=== PATIENT | female | born 1985 ===

== ENCOUNTER 2020-03-13 02:43 | Inpatient (IN) | payer OTHER ==
[~2020-03-13] VITALS: Ht 154.9 cm; Wt 56.2 kg
[2020-03-13] MEDS ORDERED: PRENATABS RX T1 EACH PO (03:04)
[2020-03-15] MEDS ORDERED: NAPR500T14 PO (09:47)
== END 2020-03-15 11:56 | disposition home or self-care (01) | DRG 807 ==
LOC: LDR 02:43 → OB/GYN 02:43
PROVIDERS: ADMIT Obstetrics & Gynecology; ATTEND Obstetrics & Gynecology
PROC: 10E0XZZ Delivery of Products of Conception, External Approach (ICD-10-PCS; principal; 2020-03-13)
PROC: 0KQM0ZZ Repair Perineum Muscle, Open Approach (ICD-10-PCS; 2020-03-13)
PROC: 3E033VJ Introduction of Other Hormone into Peripheral Vein, Percutaneous Approach (ICD-10-PCS; 2020-03-13)
PROC: 4A1HXFZ Monitoring of Products of Conception, Cardiac Rhythm, External Approach (ICD-10-PCS; 2020-03-13)
DX: O99.824 Streptococcus B carrier state complicating childbirth (principal); Z37.0 Single live birth; O70.1 Second degree perineal laceration during delivery; Z3A.38 38 weeks gestation of pregnancy; Z20.828 Contact with and (suspected) exposure to other viral communicable diseases